=== PATIENT | female | born 1945 | race Asian ===

== ENCOUNTER 2022-03-14 10:48 | Inpatient (IN) | payer MEDICARE, MEDICAID ==
[~2022-03-14] VITALS: Ht 157.5 cm; Wt 59.7 kg
[2022-03-14] MEDS ORDERED: levoFLOXacin 500MG 100 ML IV ONE (12:00)
[2022-03-14 12:16] LABS: Basophils # (auto) 0 10 ^3/uL (0-0.2); Basophils % (auto) 0.4 % (0.0-2.0); Eosinophils # (auto) 0.1 10 ^3/uL (0-0.8); Eosinophils % (auto) 0.7 % (0.0-7.0); Hematocrit 32.2 % (36.0-46.0); Hemoglobin 10.2 g/dL (12.2-16.2); Lymphocytes # (auto) 1.2 10 ^3/uL (0.4-5.4); Lymphocytes % (auto) 16.3 % (10.0-50.0); Mean Corpuscular Hemoglobin 27.8 pg (28.0-32.0); Mean Corpuscular Hgb Conc. 31.8 g/dL (32.0-36.0); Mean Corpuscular Volume 87.3 fL (80.0-100.0); Monocytes # (auto) 0.7 10 ^3/uL (0-1.3); Monocytes % (auto) 9.9 % (0.0-12.0); Neutrophils # (auto) 5.4 10 ^3/uL (1.6-8.6); Neutrophils % (auto) 72.7 % (37.0-80.0); Red Blood Cells 3.69 10^6/uL (4.0-5.20); Red Cell Distribution Width 14.6 % (11.8-14.3); White Blood Cell 7.4 10^3/uL (4.4-10.8)
[2022-03-14 12:45] LABS: Albumin 2.6 g/dL (3.4-5.0); Calcium 9.3 mg/dL (8.5-10.1); Potassium 4.1 mmol/L (3.5-5.1)
[2022-03-14 12:48] LABS: Bilirubin, Total 0.5 mg/dL (0.2-1.0); Total Protein 7.5 g/dL (6.4-8.2)
[2022-03-14 15:17] LABS: Urine Amorphous Crystal FEW /hpf (None Seen); Urine Bacteria FEW /hpf (None Seen); Urine Blood Negative /uL (Negative); Urine Mucus FEW (None Seen); Urine Specific Gravity 1.015 (1.001-1.035); Urine WBC 1 /hpf (0 - 5)
[2022-03-14] MEDS ORDERED: NITROGLYCERIN 0.4 MG SL TAB SL PRN (15:30)
[2022-03-14] MEDS ORDERED: ENOXAPARIN SOD 100 MG/1 ML SYRINGE SC ONE (15:30)
[2022-03-14] MEDS ORDERED: MORPHINE SULFATE INJ 2 MG/ml SYRG IV PRN (15:30)
[2022-03-14] MEDS ORDERED: ASPirin 81 mg TAB PO ONE (15:30)
[2022-03-14] MEDS: AZITHROMYCIN 500MG/ 250ML 250 ML IV SCH (15:39)
[2022-03-14 17:00] VITALS: BP 106/67
[2022-03-14 17:19] VITALS: BP 106/67
[2022-03-14] MEDS: NITROFURANTOIN 100 mg CAP PO SCH (21:42)
[2022-03-14 22:00] VITALS: BP 110/67
[2022-03-15 05:00] VITALS: BP 137/79
[2022-03-15 05:40] LABS: Basophils # (auto) 0 10 ^3/uL (0-0.2); Basophils % (auto) 0.5 % (0.0-2.0); Eosinophils # (auto) 0.1 10 ^3/uL (0-0.8); Hematocrit 28.6 % (36.0-46.0); Hemoglobin 9.4 g/dL (12.2-16.2); Lymphocytes # (auto) 1.3 10 ^3/uL (0.4-5.4); Lymphocytes % (auto) 18.7 % (10.0-50.0); Mean Corpuscular Hemoglobin 28.2 pg (28.0-32.0); Mean Corpuscular Hgb Conc. 32.9 g/dL (32.0-36.0); Mean Corpuscular Volume 85.7 fL (80.0-100.0); Monocytes # (auto) 0.8 10 ^3/uL (0-1.3); Monocytes % (auto) 11.9 % (0.0-12.0); Neutrophils # (auto) 4.7 10 ^3/uL (1.6-8.6); Neutrophils % (auto) 67.9 % (37.0-80.0); Nucleated Red Blood Cells % 0.1 %; Red Blood Cells 3.34 10^6/uL (4.0-5.20); Red Cell Distribution Width 14.4 % (11.8-14.3); White Blood Cell 6.9 10^3/uL (4.4-10.8)
[2022-03-15 05:51] LABS: Albumin 2.2 g/dL (3.4-5.0); Calcium 9.5 mg/dL (8.5-10.1)
[2022-03-15 05:57] LABS: Bilirubin, Total 0.4 mg/dL (0.2-1.0); Total Protein 6.6 g/dL (6.4-8.2)
[2022-03-15 08:25] VITALS: BP 108/64
[2022-03-15] MEDS: cefTRIAXone 1GM/50ML D5W 50 ML IV SCH (10:04)
[2022-03-15] MEDS: AZITHROMYCIN 500MG/ 250ML 250 ML IV SCH (10:44)
[2022-03-15 12:36] VITALS: BP 103/66
[2022-03-15] MEDS ORDERED: LISI2.5T47 PO (12:42)
[2022-03-15] MEDS ORDERED: AMIO200T33 PO (12:42)
[2022-03-15] MEDS ORDERED: LEV50T PO (12:42)
[2022-03-15] MEDS ORDERED: PRAV20TA3 PO (12:42)
[2022-03-15] MEDS ORDERED: DOXY75TA PO (12:42)
[2022-03-15] MEDS ORDERED: ASPI-543 PO (12:42)
[2022-03-15 16:25] VITALS: BP 115/73
[2022-03-15] MEDS: NITROFURANTOIN 100 mg CAP PO SCH (20:30)
[2022-03-15 22:00] VITALS: BP 106/64
[2022-03-15] MEDS ORDERED: ATORVASTATIN 20 MG TAB PO SCH (22:00)
[2022-03-16 05:00] VITALS: BP 146/85
[2022-03-16 09:00] VITALS: BP 130/69
[2022-03-16] MEDS: cefTRIAXone 1GM/50ML D5W 50 ML IV SCH (09:19)
[2022-03-16] MEDS ORDERED: ASPirin 81 mg TAB PO SCH (10:00)
[2022-03-16] MEDS ORDERED: CLOPIDOGREL BISULFATE 75 MG TAB PO SCH (10:00)
[2022-03-16] MEDS: AZITHROMYCIN 500MG/ 250ML 250 ML IV SCH (10:36)
[2022-03-16] MEDS ORDERED: AZIT250T8 PO (11:11)
[2022-03-16] MEDS ORDERED: NITR100C6 PO (11:11)
[2022-03-16] MEDS ORDERED: CLOP75TA70 PO (11:11)
[2022-03-16 13:00] VITALS: BP_SYST 121; BP_SYST 139; BP_DIAS 65; BP_DIAS 74
[2022-03-16 16:56] VITALS: BP 120/68
== END 2022-03-16 16:45 | disposition home or self-care (01) | DRG 280 ==
LOC: ER 10:48 → TELE 15:24 → TELE-EAST 16:58
PROVIDERS: ADMIT Registered Nurse; ATTEND Internal Medicine
DX: I21.4 Non-ST elevation (NSTEMI) myocardial infarction (principal); J18.9 Pneumonia, unspecified organism; J90 Pleural effusion, not elsewhere classified; N13.6 Pyonephrosis; E03.9 Hypothyroidism, unspecified; E78.5 Hyperlipidemia, unspecified; I25.10 Atherosclerotic heart disease of native coronary artery without angina pectoris; I48.0 Paroxysmal atrial fibrillation; Z20.822 Contact with and (suspected) exposure to COVID-19; I34.2 Nonrheumatic mitral (valve) stenosis; K59.00 Constipation, unspecified; N18.32 Chronic kidney disease, stage 3b; Z90.710 Acquired absence of both cervix and uterus
CPT/HCPCS: 36415; 71046; 74176; 78707; 80053; 81001; 83605; 83880; 84443; 84484; 85025; 87040; 87081; 93005; 96365; 96367; 96372; G0378; J0696; J1956